=== PATIENT | male | born 1965 | race Caucasian/White ===

== ENCOUNTER 2019-09-15 11:11 | Emergency (ER) | payer OTHER ==
[~2019-09-15] VITALS: Ht 177.8 cm; Wt 93.4 kg
--- NOTE | 2019-09-15 11:26 | NUR ---
C/O FACIAL SWELLING, HIVES, DIFFICULTY SWALLOWING SINCE YESTERDAY. TOOK BENADRYL YESTERDAY, INEFFECTIVE. REPORTS SYMPTOMS LASTING A MONTH, DENIES ALLERGIES. DENIES SOB, PAIN, DIZZINESS. HIVES PRESENT ON TORSO. NO ACUTE DISTRESS NOTED. READY FOR EVAL.
--- NOTE | 2019-09-15 11:32 | NUR ---
AT BEDSIDE FOR EVAL.
[2019-09-15] MEDS ORDERED: predniSONE 20 MG TABLET ONE (11:47)
[2019-09-15 11:52] VITALS: BP 149/97
--- NOTE | 2019-09-15 11:52 | NUR ---
Patient discharged to home in stable condition. Written and verbal after care instructions given. Patient verbalizes understanding of instruction.
[2019-09-15] MEDS ORDERED: predniSONE 20 MG TABLET PO ONE (12:00)
== END 2019-09-15 11:52 | disposition home or self-care (01) ==
LOC: ER 11:17
DX: L50.0 Allergic urticaria (principal)
CPT/HCPCS: 99283; J7512

== ENCOUNTER 2019-10-02 07:55 | Emergency (ER) | payer OTHER ==
[~2019-10-02] VITALS: Ht 177.8 cm; Wt 93.0 kg
[2019-10-02 08:00] VITALS: BP 138/97
[2019-10-02] MEDS ORDERED: diphenhydrAMINE HCL 50 MG CAPSULE ONE (08:11)
[2019-10-02] MEDS ORDERED: predniSONE 20 MG TABLET ONE (08:12)
[2019-10-02] MEDS ORDERED: FAMOTIDINE (20 MG) 20 MG TABLET ONE (08:12)
[2019-10-02] MEDS ORDERED: FAMOTIDINE (20 MG) 20 MG TABLET PO ONE (08:30)
[2019-10-02] MEDS ORDERED: diphenhydrAMINE HCL 50 MG CAPSULE PO ONE (08:30)
[2019-10-02] MEDS ORDERED: predniSONE 10 MG TABLET PO ONE (08:30)
== END 2019-10-02 08:28 | disposition home or self-care (01) ==
LOC: ER 07:58
DX: L50.0 Allergic urticaria (principal)
CPT/HCPCS: 99284; J7512; Q0163